=== PATIENT | male | born 1935 | race Caucasian/White ===

== ENCOUNTER → 2017-05-25 | Outpatient (CLI) | payer MEDICARE, OTHER ==
--- NOTE | 2017-05-25 18:06 | RADRPT ---
PROCEDURE: XR Thoracic Spine. CLINICAL INDICATION: Back pain. TECHNIQUE: Two views. Frontal and lateral. COMPARISON: None available FINDINGS: There is normal stature and alignment of the vertebrae. There is no fracture. There is no lytic or blastic lesion. The disk height is normal.There is flowing ossification along the anterolateral aspect of 9 contiguo us lower thoracic vertebral bodies, with preservation of disk height consistent with diffuse idiopat hic skeletal hyperostosis (DISH). The paravertebral soft tissues are unremarkable. IMPRESSION: 1. Diffuse idiopathic skeletal hyperostosis. 2. Otherwise normal images of the thoracic spine with no acute abnormality. RPTAT: QQ .Ru Ambriz MD, MD Date Time Electronically viewed and signed by .Ru Ambriz MD, MD on 05/25/2017 18:05 .R/
== END | disposition home or self-care (01) ==
LOC: RAD 08:13
PROVIDERS: ATTEND Internal Medicine
DX: M54.6 Pain in thoracic spine (principal)
CPT/HCPCS: 72072

== ENCOUNTER → 2018-08-30 | Outpatient (CLI) | END | disposition home or self-care (01) ==

== ENCOUNTER → 2019-04-18 | Outpatient (CLI) | payer MEDICARE, OTHER | END | disposition home or self-care (01) | LOC: RAD 08:10 | PROVIDERS: ATTEND Internal Medicine | DX: R05 Cough (principal) | CPT/HCPCS: 71046 ==